=== PATIENT | male | born 1970 | race Caucasian/White ===

== ENCOUNTER 2017-05-06 02:43 | Emergency (ER) | payer MEDICARE ==
[~2017-05-06 02:43] MED LIST: ACETAMINOPHEN325 MG PO; ALBUTEROL S3 ML/VIAL NEB; CLARITIN10 MG PO; HYDROCODON-ACE1 EAC6 PO; IBUPROFEN800 MG PO; NORVASC5 MG PO; PROAIR HFA8.5 GM IH; SINGULAIR10 MG PO; SYMBICORT 16010.2 GM IH; ZYVOX600 MG PO
== END 2017-05-06 02:45 | disposition home or self-care (01) ==
LOC: ER 02:43
DX: S91.332A Puncture wound without foreign body, left foot, initial encounter (principal); I10 Essential (primary) hypertension; J45.909 Unspecified asthma, uncomplicated; F17.210 Nicotine dependence, cigarettes, uncomplicated; Z79.899 Other long term (current) drug therapy; W22.8XXA Striking against or struck by other objects, initial encounter